=== PATIENT | male | born 1990 | race African-American/Black ===

== ENCOUNTER 2020-11-14 22:13 | Emergency (ER) | payer OTHER ==
[~2020-11-14] VITALS: Ht 175.3 cm; Wt 145.0 kg
[2020-11-14 23:59] VITALS: BP 165/117
[2020-11-14] MEDS: KETOROLAC 60MG/2ML VIAL IM ONE (23:59)
[2020-11-14] MEDS: METOPROLOL TARTRATE 25MG TABLET PO ONE (23:59)
[2020-11-15 00:45] LABS: HEMATOCRIT 41.4 % (42.0-52.0); HEMOGLOBIN 13.9 g/dL (14.0-18.0); MEAN CORPUSCULAR HEMOGLOBIN 25.3 pg (28.0-32.0); MEAN CORPUSCULAR VOLUME 75.2 fL (80.0-94.0); PLATELET 204 x1000/uL (130-400); RED CELL DISTRIBUTION WIDTH 13.6 % (11.6-14.6)
[2020-11-15 00:55] LABS: CHLORIDE 108 mEq/L (98-107)
[2020-11-15] MEDS ORDERED: METO-396 MT (01:25)
== END 2020-11-15 01:38 | disposition home or self-care (01) ==
LOC: ER 22:13
DX: I10 Essential (primary) hypertension (principal); R51.9 Headache, unspecified; E66.9 Obesity, unspecified
CPT/HCPCS: 36415; 70450; 80053; 85027; 93005; 96372; 99285; J1885